=== PATIENT | male | born 1950 | race Two or more races ===

== ENCOUNTER 2017-10-23 17:12 | Emergency (ER) | payer MEDICARE, OTHER ==
[2017-10-23 17:20] VITALS: BP 167/102; PULSE 86; RESP 18; TEMP 97.3
[2017-10-23] MEDS ORDERED: RX INFO: IV CONTRAST WAS GIVEN 1 EACH MISC MISCELLANE PRN ×2 (17:29→18:05)
[2017-10-23] MEDS ORDERED: ONDANSETRON 4 MG/2 ML VIAL IVP STA (17:29)
[2017-10-23] MEDS ORDERED: SODIUM CHLORIDE 0.9% 1,000 ML IV STA (17:29)
[2017-10-23] MEDS ORDERED: HYDROmorphone 2 MG/ML 1 ML SYRINGE IVP STA ×2 (17:29→18:39)
--- NOTE | 2017-10-23 17:34 | ED ---
Abdominal Pain HPI - General Source: patient, RN notes reviewed, old records reviewed Mode of arrival: EMS Limitations: no limitations <Thu Wills - Last Filed: 10/23/17 19:07> <Paul Warner - Last Filed: 10/23/17 19:30> - General Chief Complaint: Abdominal Pain Stated Complaint: Flank pain Time Seen by Provider: 10/23/17 17:17 - History of Present Illness Initial Comments: patient is a 67-year-old male presents emergency Department chief complaint of 2 days of lower back pain. Patient reports that he has had no fever or chills, nausea vomiting normal bowel habits urination. He states that he just feels very ill and fatigued. Patient states that he is has back pain radiating towards his abdomen. He has no significant surgical history. He reports his history of high blood pressure. Patient denies any chest pain or shortness of breath. (Thu Wills) - Related Data Home Medications Medication Instructions Recorded Confirmed No Known Home Medications [No 10/23/17 10/23/17 Known Home Medications] Allergies Allergy/AdvReac Type Severity Reaction Status Date / Time No Known Allergies Allergy Verified 10/23/17 17:32 Review of Systems ROS Other: All systems not noted in ROS Statement are negative. <Thu Wills - Last Filed: 10/23/17 19:07> ROS Other: All systems not noted in ROS Statement are negative. <Paul Warner - Last Filed: 10/23/17 19:30> ROS Statement: Those systems with pertinent positive or pertinent negative responses have been documented in the HPI. Past Medical History Past Medical History: Hypertension Additional Past Medical History / Comment(s): kidney 15 yrs ago History of Any Multi-Drug Resistant Organisms: None Reported Past Surgical History: No Surgical Hx Reported Past Psychological History: No Psychological Hx Reported Smoking Status: Former smoker Past Alcohol Use History: Occasional Past Drug Use History: Marijuana <Thu Wills - Last Filed: 10/23/17 19:07> General Exam Limitations: no limitations General appearance: alert, in no apparent distress Head exam: Present: atraumatic, normocephalic, normal inspection Eye exam: Present: normal appearance, PERRL, EOMI. Absent: scleral icterus, conjunctival injection, periorbital swelling ENT exam: Present: mucous membranes dry. Absent: normal exam Neck exam: Present: normal inspection. Absent: tenderness, meningismus, lymphadenopathy Respiratory exam: Present: normal lung sounds bilaterally. Absent: respiratory distress, wheezes, rales, rhonchi, stridor Cardiovascular Exam: Present: regular rate, normal rhythm, normal heart sounds. Absent: systolic murmur, diastolic murmur, rubs, gallop, clicks GI/Abdominal exam: Present: soft, tenderness (RUQ tenderness), normal bowel sounds. Absent: distended, guarding, rebound, rigid Extremities exam: Present: normal inspection, full ROM, normal capillary refill. Absent: tenderness, pedal edema, joint swelling, calf tenderness Back exam: Present: normal inspection Neurological exam: Present: alert, oriented X3, CN II-XII intact Psychiatric exam: Present: normal affect, normal mood Skin exam: Present: warm, dry, intact, normal color. Absent: rash <Thu Wills - Last Filed: 10/23/17 19:07> <Paul Warner - Last Filed: 10/23/17 19:30> - General Exam Comments Initial Comments: 67-year-old male. patient appears somewhat icteric. (Thu Wills) Vital Signs 10/23/17 17:16 Temperature 97.3 F L Pulse Rate 86 Respiratory 18 Rate Blood Pressure 167/102 O2 Sat by Pulse 93 L Oximetry Medical Decision Making - Lab Data Result diagrams: 10/23/17 18:10 10/23/17 18:10 <Thu Wills - Last Filed: 10/23/17 19:07> - Lab Data Result diagrams: 10/23/17 18:10 10/23/17 18:10 <Paul Warner - Last Filed: 10/23/17 19:30> - Medical Decision Making Medical decision making; this is a 67-year-old male who was brought emergency room by ambulance. In the ambulance he received 5 mg of morphine for pain management for 2 days of back pain. The patient did have apast history of kidney stones years ago. Patient also had a history of hypertension but per patient and family he was not on any medications and he hasn't been to see a physician for very long time. The patient became unconscious in the emergency room. he was pale, diaphoretic. He was given IV Narcan which did seem to arouse him. His blood sugar check at that time was 185. Examination and questioning found the patient complained of abdominal pain and chest pain. No bruit could be appreciated. Abdomen was reasonably soft , no pulsatile mass . Lungs were essentially clear to auscultation. EKG was done, showed heart strain. But no acute ST elevation. Cardiology was consulted, EKG was sent to them directly. In the meanwhile the patient was sent for stat CAT scan of the chest, abdomen, pelvis to rule out AAA and/or pulmonary embolism. Patient received IV fluids. Radiologist reviewed the CAT scan and reported evidence of AAA rupture. Patient was brought back to the trauma room where he lost consciousness. Patient was intubated without difficulty. Placed on medications for comfort. Blood pressure rapidly diminished as did pulse. Patient was pronounced at 1854. Dr. Warner I spoke with the and she stated the been complaining of back pain for 2 days and was not on any medications for blood pressure nor did he go to a doctor for very long time. Dr. Warner EKG was done at 1745 showing sinus tachycardia rate 111 with a right bundle branch block and marked ST abnormality possible subendocardial injury. Rate 11 UT interval is 112 QRS 112 QT 364 QTc 495. This EKG was sent stat to the on- call data warehouse consultant Dr. Martinez. A second EKG was done at 1848 showing sinus bradycardia with a right bundle branch age undetermined septal infarct. EKG tracing and ventricular rate of 49. I was 186 QRS [address] Warner [facility] was notified. (Paul Warner) - Lab Data Lab Results 10/23/17 10/23/17 10/23/17 Range/Units 17:45 18:10 18:10 WBC 17.0 H (3.8-10.6) k/uL RBC 4.77 (4.30-5.90) m/uL Hgb 14.4 (13.0-17.5) gm/dL Hct 44.8 (39.0-53.0) % MCV 93.9 (80.0-100.0) fL MCH 30.1 (25.0-35.0) pg MCHC 32.1 (31.0-37.0) g/dL RDW 12.8 (11.5-15.5) % Plt Count 341 (150-450) k/uL Neutrophils % 85 % Lymphocytes % 9 % Monocytes % 5 % Eosinophils % 0 % Basophils % 0 % Neutrophils # 14.4 H (1.3-7.7) k/uL Lymphocytes # 1.5 (1.0-4.8) k/uL Monocytes # 0.8 (0-1.0) k/uL Eosinophils # 0.0 (0-0.7) k/uL Basophils # 0.0 (0-0.2) k/uL PT (9.0-12.0) sec INR (<1.2) APTT (22.0-30.0) sec Sodium 143 (137-145) mmol/L Potassium 4.0 (3.5-5.1) mmol/L Chloride 111 H (98-107) mmol/L Carbon Dioxide 17 L (22-30) mmol/L Anion Gap 15 mmol/L BUN 16 (9-20) mg/dL Creatinine 1.02 (0.66-1.25) mg/dL Est GFR (MDRD) Af Amer >60 (>60 ml/min/1.73 sqM) Est GFR (MDRD) Non-Af >60 (>60 ml/min/1.73 sqM) Glucose 193 H (74-99) mg/dL POC Glucose (mg/dL) 182 H (75-99) mg/dL POC Glu Bulb Tester ID Ida Bueno Plasma Lactic Acid Guy (0.7-2.0) mmol/L Calcium 8.3 L (8.4-10.2) mg/dL Total Bilirubin 0.8 (0.2-1.3) mg/dL AST 20 (17-59) U/L ALT 25 (21-72) U/L Alkaline Phosphatase 84 (38-126) U/L Total Creatine Kinase (55-170) U/L CK-MB (CK-2) (0.0-2.4) ng/mL CK-MB (CK-2) Rel Index Troponin I (0.000-0.034) ng/mL Total Protein 5.7 L (6.3-8.2) g/dL Albumin 3.0 L (3.5-5.0) g/dL Amylase 65 (30-110) U/L Lipase 203 (23-300) U/L 02/06/3010/23/17 10/23/17 Range/Units 18:10 18:10 18:30 WBC (3.8-10.6) k/uL RBC (4.30-5.90) m/uL Hgb (13.0-17.5) gm/dL Hct (39.0-53.0) % MCV (80.0-100.0) fL MCH (25.0-35.0) pg MCHC (31.0-37.0) g/dL RDW (11.5-15.5) % Plt Count (150-450) k/uL Neutrophils % % Lymphocytes % % Monocytes % % Eosinophils % % Basophils % % Neutrophils # (1.3-7.7) k/uL Lymphocytes # (1.0-4.8) k/uL Monocytes # (0-1.0) k/uL Eosinophils # (0-0.7) k/uL Basophils # (0-0.2) k/uL PT (9.0-12.0) sec INR (<1.2) APTT 20.5 L (22.0-30.0) sec Sodium (137-145) mmol/L Potassium (3.5-5.1) mmol/L Chloride (98-107) mmol/L Carbon Dioxide (22-30) mmol/L Anion Gap mmol/L BUN (9-20) mg/dL Creatinine (0.66-1.25) mg/dL Est GFR (MDRD) Af Amer (>60 ml/min/1.73 sqM) Est GFR (MDRD) Non-Af (>60 ml/min/1.73 sqM) Glucose (74-99) mg/dL POC Glucose (mg/dL) (75-99) mg/dL POC Glu Bulb Tester ID Plasma Lactic Acid Guy 11.8 H* (0.7-2.0) mmol/L Calcium (8.4-10.2) mg/dL Total Bilirubin (0.2-1.3) mg/dL AST (17-59) U/L ALT (21-72) U/L Alkaline Phosphatase (38-126) U/L Total Creatine Kinase 54 L (55-170) U/L CK-MB (CK-2) 2.3 (0.0-2.4) ng/mL CK-MB (CK-2) Rel Index 4.3 Troponin I 0.090 H* (0.000-0.034) ng/mL Total Protein (6.3-8.2) g/dL Albumin (3.5-5.0) g/dL Amylase (30-110) U/L Lipase (23-300) U/L 10/23/17 Range/Units 18:30 WBC (3.8-10.6) k/uL RBC (4.30-5.90) m/uL Hgb (13.0-17.5) gm/dL Hct (39.0-53.0) % MCV (80.0-100.0) fL MCH (25.0-35.0) pg MCHC (31.0-37.0) g/dL RDW (11.5-15.5) % Plt Count (150-450) k/uL Neutrophils % % Lymphocytes % % Monocytes % % Eosinophils % % Basophils % % Neutrophils # (1.3-7.7) k/uL Lymphocytes # (1.0-4.8) k/uL Monocytes # (0-1.0) k/uL Eosinophils # (0-0.7) k/uL Basophils # (0-0.2) k/uL PT 13.5 H (9.0-12.0) sec INR 1.4 H (<1.2) APTT (22.0-30.0) sec Sodium (137-145) mmol/L Potassium (3.5-5.1) mmol/L Chloride (98-107) mmol/L Carbon Dioxide (22-30) mmol/L Anion Gap mmol/L BUN (9-20) mg/dL Creatinine (0.66-1.25) mg/dL Est GFR (MDRD) Af Amer (>60 ml/min/1.73 sqM) Est GFR (MDRD) Non-Af (>60 ml/min/1.73 sqM) Glucose (74-99) mg/dL POC Glucose (mg/dL) (75-99) mg/dL POC Glu Bulb Tester ID Plasma Lactic Acid Guy (0.7-2.0) mmol/L Calcium (8.4-10.2) mg/dL Total Bilirubin (0.2-1.3) mg/dL AST (17-59) U/L ALT (21-72) U/L Alkaline Phosphatase (38-126) U/L Total Creatine Kinase (55-170) U/L CK-MB (CK-2) (0.0-2.4) ng/mL CK-MB (CK-2) Rel Index Troponin I (0.000-0.034) ng/mL Total Protein (6.3-8.2) g/dL Albumin (3.5-5.0) g/dL Amylase (30-110) U/L Lipase (23-300) U/L Disposition <Thu Wills - Last Filed: 10/23/17 19:07> Preliminary Cause of : ruptured AAA - Out of Hospital Transfer - Req. Specs Out of Hospital Transfer - Requested Specifics: [place] [facility] [place] <Paul Warner - Last Filed: 10/23/17 19:30> Clinical Impression: Ruptured abdominal aortic aneurysm Disposition: Referrals: None,Stated [Primary Care Provider] - 1-2 days
[2017-10-23] MEDS ORDERED: METOCLOPRAMIDE 5 MG/ML 2 ML VIAL IVP STA (17:48)
[2017-10-23] MEDS: NALOXONE 0.4 MG/ML 1 ML VIAL IV STA ×2 (17:48→17:49)
--- NOTE | 2017-10-23 18:15 | XR ---
EXAMINATION TYPE: XR chest 1V DATE OF EXAM: 10/23/2017 COMPARISON: NONE HISTORY: Chest pain, abdominal pain TECHNIQUE: Single frontal view of the chest is obtained. FINDINGS: There is no focal air space opacity, pleural effusion, or pneumothorax seen. The cardiac silhouette size is within normal limits. The osseous structures are intact. IMPRESSION: No acute process.
[2017-10-23 18:27] LABS: Basophils % (A) 0 %; Eosinophils % (A) 0 %; HCT 44.8 % (39.0-53.0); HGB 14.4 gm/dL (13.0-17.5); Lymphocytes # (A) 1.5 k/uL (1.0-4.8); Lymphocytes % (A) 9 %; MCH 30.1 pg (25.0-35.0); MCHC 32.1 g/dL (31.0-37.0); MCV 93.9 fL (80.0-100.0); Mean Platelet Volume 7.2; Monocytes # (A) 0.8 k/uL (0-1.0); Monocytes % (A) 5 %; Neutrophils # (A) 14.4 k/uL (1.3-7.7); Neutrophils % (A) 85 %; Platelet Count 341 k/uL (150-450); RBC 4.77 m/uL (4.30-5.90); RDW 12.8 % (11.5-15.5)
[2017-10-23 18:28] LABS: Glucose,Whole Blood 182 mg/dL (75-99)
[2017-10-23 18:31] LABS: ALT 25 U/L (21-72); AST 20 U/L (17-59); Alkaline Phosphatase 84 U/L (38-126); Amylase 65 U/L (30-110); Anion Gap 15 mmol/L; Blood Urea Nitrogen 16 mg/dL (9-20); Calcium 8.3 mg/dL (8.4-10.2); Carbon Dioxide 17 mmol/L (22-30); Chloride 111 mmol/L (98-107); Glucose 193 mg/dL (74-99); Lipase 203 U/L (23-300); Sodium 143 mmol/L (137-145); Total Bilirubin 0.8 mg/dL (0.2-1.3); Total Protein 5.7 g/dL (6.3-8.2)
[2017-10-23] MEDS ORDERED: MIDAZOLAM (PF) 1 MG/ML 5 ML VIAL IV STA (18:37)
[2017-10-23] MEDS ORDERED: SUCCINYLCHOLINE CHLORIDE VIAL 200 MG/10 ML VIAL IV STA (18:37)
[2017-10-23 18:56] LABS: Creatine Kinase MB 2.3 ng/mL (0.0-2.4)
--- NOTE | 2017-10-23 18:58 | CT ---
EXAMINATION TYPE: CT angio chest DATE OF EXAM: 10/23/2017 6:50 PM COMPARISON: NONE HISTORY: Chest and Abdominal pain with Shortness of breath. CT DLP: 1015.9 mGycm Automated exposure control for dose reduction was used. CONTRAST: CTA scan of the thorax is performed with IV Contrast, patient injected with 100 mL of Omnipaque 350, pulmonary embolism protocol. Maximal intensity projection images were created at a separate workstation.. FINDINGS: LUNGS: The lungs are grossly clear, there is no concerning parenchymal mass. There is a 5 mm nodule i dentified in the right upper lobe. Smaller nodule is identified more inferiorly. Emphysematous change s are noted in the lungs. There is no pleural effusion or pneumothorax seen. The tracheobronchial tr ee is patent. MEDIASTINUM: There is satisfactory enhancement of the pulmonary artery and its branches, there is no CT evidence for pulmonary embolism. There are no greater than 1 cm hilar or mediastinal lymph nodes. No pericardial effusion is seen. Abnormal findings are seen in the abdomen which will be described in the dedicated examination of the abdomen and pelvis. IMPRESSION: NO PULMONARY EMBOLISM IS SEEN. DIFFUSE EMPHYSEMATOUS CHANGES ARE NOTED. 5 MM NODULE IS IDENTIFIED IN THE RIGHT UPPER LOBE WITH MORE SMALLER NODULES IDENTIFIED MORE INFERIORL Y. SIX-MONTH FOLLOW-UP IS RECOMMENDED.
[2017-10-23 18:59] LABS: INR 1.4 (<1.2); Prothrombin Time 13.5 sec (9.0-12.0)
[2017-10-23 19:02] LABS: Troponin I 0.09 ng/mL (0.000-0.034)
--- NOTE | 2017-10-23 19:06 | CT ---
EXAMINATION TYPE: CT angio abd aorta wo/w con DATE OF EXAM: 10/23/2017 COMPARISON: NONE HISTORY: Chest and Abdominal pain with Shortness of breath. CT DLP: 696.9 mGycm, Automated Exposure Control for Dose Reduction was Utilized. CONTRAST: CT scan of the abdomen and pelvis is performed with oral and with IV Contrast, patient injected with 100 mL of Omnipaque 350. FINDINGS: Lung bases demonstrate emphysematous changes. The liver, spleen, adrenal glands, and gallbladder are unremarkable. Pancreas appears unremarkable ho wever it is displaced anteriorly. No contrast is seen in the left kidney and the left kidney is dimin utive. The right kidney enhances. There is a hyperdense cystic focus within the right kidney which is felt to be a cortical cyst which is expanded into the fat surrounding the renal pelvis. There is a large hyperdense fluid collection identified in the retroperitoneum which measures 16 by 8 centimeters. This is felt to be from a ruptured abdominal aortic aneurysm. However, the source of th e hemorrhage is not seen. The abdominal aortic aneurysm measures 5.8 x 6.0 cm. There is an ulceration into the circumferential thrombus identified on image 115. Aneurysm extends to the level of the bifu rcation and originates approximately 1.6 cm below the left renal artery. 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 Aneurysmal dilatation on the right measures up to 2.3 cm. Th ere are extensive atherosclerotic calcifications identified in both external iliac arteries. There ap pears to be occlusion of the right common femoral artery. There is no evidence of a bowel obstruction. There is no free intraperitoneal air. Extensive calcific ations are identified in the prostate. There are no osteolytic or osteoblastic lesions. IMPRESSION: 1. Very large hyperdense retroperitoneal fluid collection which displaces the bowel and abdominal org ans. This is felt to be related to a ruptured abdominal aortic aneurysm. Findings were discussed at the CT scanner with Dr. Warner by Dr. Mackay at 1850 10/23/2017
== END 2017-10-23 21:00 | disposition expired ==
LOC: EC 17:12
DX: I71.3 Abdominal aortic aneurysm, ruptured (principal); R00.0 Tachycardia, unspecified; I45.10 Unspecified right bundle-branch block; Z87.891 Personal history of nicotine dependence; Z53.8 Procedure and treatment not carried out for other reasons
CPT/HCPCS: 99285; 96374; 96375 ×4; 36415; 94002; 93005; 86900; 86901; 80053; 82150; 82550; 82553; 83605; 83690; 84484; 85025; 85610; 85730; 86850; 87040; 71045; 75635; 71275; 96361 ×3; J0330; J1170; J2310; J2765; Q9967; J2250